=== PATIENT | female | born 1950 | race Two or more races ===

== ENCOUNTER 2021-05-05 16:30 | Emergency (ER) | payer OTHER ==
[~2021-05-05] VITALS: Ht 152.4 cm; Wt 72.7 kg
[2021-05-05] MEDS ORDERED: ACETAMINOPHEN 500 MG TABLET PO ONE (18:30)
[2021-05-05 19:05] LABS: BASOPHILS % (AUTO) 0.5 % (0.0-2.0); EOSINOPHILS % (AUTO) 2.4 % (1.0-6.0); HEMOGLOBIN 12.8 g/dL (12.0-16.0); LYMPHOCYTES # (AUTO) 1.8 K/uL (1.0-4.8); LYMPHOCYTES % (AUTO) 30.3 % (22.0-44.0); MEAN CORPUSCULAR HEMOGLOBIN 27.7 pg (26.0-34.0); MEAN CORPUSCULAR HGB CONC 32.9 G/dL (31.0-37.0); MEAN CORPUSCULAR VOLUME 84 fL (80-100); MONOCYTES # (AUTO) 0.5 K/uL (0.1-1.0); MONOCYTES % (AUTO) 8.1 % (2.0-9.0); NEUTROPHILS # (AUTO) 3.5 K/uL (1.8-7.7); NEUTROPHILS % (AUTO) 58.7 % (40.0-70.0); PLATELET COUNT (AUTO) 219 K/uL (150-450); RED BLOOD CELL COUNT(AUTO) 4.63 MIL/uL (4.00-5.20); RED CELL DISTRIBUTION WIDTH 13.9 % (11.5-14.5)
[2021-05-05 19:20] LABS: ANION GAP 10 mmol/L (8-16); CARBON DIOXIDE 24 mmol/L (22-29); CHLORIDE 104 mmol/L (98-107); CREATININE 0.68 mg/dL (0.60-1.30); GLUCOSE,RANDOM 83 mg/dL (70-110); SODIUM SERUM 138 mmol/L (136-145); UREA NITROGEN, BLOOD 15 mg/dL (7-18)
[2021-05-05 19:24] LABS: GLOMERULAR FILTR. RATE CALC > 60 mL/min (>60)
[2021-05-05 19:44] LABS: CREATINE KINASE, TOTAL ONLY 86 U/L (26-192)
[2021-05-05 19:52] VITALS: BP 147/75
[2021-05-05] MEDS ORDERED: KETOROLAC TROMETHAMINE 30 MG/ML VIAL IM ONE (20:00)
== END 2021-05-05 20:16 | disposition home or self-care (01) ==
LOC: EMS 16:30
DX: M79.605 Pain in left leg (principal); I10 Essential (primary) hypertension
CPT/HCPCS: 36415; 80048; 82550; 85025; 85379; 93971; 96372; 99284; J1885

== ENCOUNTER 2021-12-28 09:13 | Emergency (ER) | payer OTHER ==
[~2021-12-28] VITALS: Ht 152.4 cm; Wt 68.2 kg
[2021-12-28 09:24] VITALS: BP 157/96
[2021-12-28] MEDS ORDERED: ACETAMINOPHEN 500 MG TABLET PO ONE (09:45)
== END 2021-12-28 10:57 | disposition home or self-care (01) ==
LOC: EMS 09:19
DX: S20.211A Contusion of right front wall of thorax, initial encounter (principal); S40.011A Contusion of right shoulder, initial encounter; S00.83XA Contusion of other part of head, initial encounter; W01.198A Fall on same level from slipping, tripping and stumbling with subsequent striking against other object, initial encounter; Y93.89 Activity, other specified; Y92.89 Other specified places as the place of occurrence of the external cause; Y99.8 Other external cause status
CPT/HCPCS: 71045; 99284